=== PATIENT | female | born 2000 | race Caucasian/White ===

== ENCOUNTER → 2023-07-19 15:14 | Outpatient (REF) | payer OTHER, SELFPAY | LOC: RAD 15:14 | PROVIDERS: ATTENDING PHYSICIAN Internal Medicine; FAMILY PHYSICIAN Family Medicine | DX: E04.1 Nontoxic single thyroid nodule (principal) | CPT/HCPCS: 76536 ==

== ENCOUNTER → 2024-01-22 08:55 | Outpatient (REF) | payer OTHER, SELFPAY | LOC: HWRAD 08:55 | PROVIDERS: ATTENDING PHYSICIAN Internal Medicine; FAMILY PHYSICIAN Family Medicine | DX: C73 Malignant neoplasm of thyroid gland (principal) | CPT/HCPCS: 76536 ==

== ENCOUNTER → 2024-07-18 14:58 | Outpatient (REF) | payer OTHER, SELFPAY | LOC: RAD 14:58 | PROVIDERS: ATTENDING PHYSICIAN Family Medicine | DX: C73 Malignant neoplasm of thyroid gland (principal); E05.00 Thyrotoxicosis with diffuse goiter without thyrotoxic crisis or storm | CPT/HCPCS: 76536 ==